=== PATIENT | male | born 1965 | race Caucasian/White ===

== ENCOUNTER 2017-04-10 10:17 | Emergency (ER) | payer MEDICAID ==
[~2017-04-10] VITALS: Ht 185.4 cm; Wt 82.1 kg
[2017-04-10 10:19] VITALS: BP 159/113
== END 2017-04-10 11:53 | disposition home or self-care (01) ==
LOC: ED 11:49
DX: Z76.0 Encounter for issue of repeat prescription (principal)
CPT/HCPCS: 99283